=== PATIENT | male | born 1975 | race Hispanic/Latino ===

== ENCOUNTER 2018-07-01 02:15 | Emergency (ER) | payer SELFPAY ==
[2018-07-01 02:15] VITALS: BMI 31.5
[2018-07-01 02:23] VITALS: BP 118/75; PULSE 85; RESP 18; TEMP 97.8; O2SAT 99
--- NOTE | 2018-07-01 02:49 | ED PDOC ---
HPI: Psych/Substance Abuse Chief Complaint (Provider): crisis eval History Per: Patient History/Exam Limitations: no limitations Onset/Duration Of Symptoms: Days Current Symptoms Are (Timing): Still Present Additional Complaint(s): 42 y/o male presents for crisis evaluation. Patient states he has been off his psychiatric medications two weeks because he "lost them"; states he smoked K2 over the weekend and now has been having homicidal ideations. Denies suicidal ideations, recent drug/alcohol use, acute physical complaints. <Isela Vail - Last Filed: 07/01/18 03:44> <Roby Perez - Last Filed: 07/01/18 06:47> Time Seen by Provider: 07/01/18 02:30 Chief Complaint (Nursing): Psychiatric Evaluation Past Medical History Reviewed: Historical Data, Nursing Documentation, Vital Signs Vital Signs: Last Vital Signs Temp 97.8 F 07/01/18 02:19 Pulse 85 07/01/18 02:19 Resp 18 07/01/18 02:19 BP 118/75 07/01/18 02:19 Pulse Ox 99 07/01/18 02:19 - Medical History PMH: Anxiety, Asthma, Bipolar Disorder, Depression, Schizophrenia Denies: Diabetes, Hepatitis, HIV, HTN, Seizures, Sexually Transmitted Disease - Family History Family History: States: Unknown Family Hx - Living Arrangements Living Arrangements: Alone - Social History Current smoker - smoking cessation education provided: Yes Alcohol: None Drugs: Cannabis - Immunization History Hx Tetanus Toxoid Vaccination: No Hx Influenza Vaccination: No Hx Pneumococcal Vaccination: No <Isela Vail - Last Filed: 07/01/18 03:44> Vital Signs: Last Vital Signs Temp 97.8 F 07/01/18 02:19 Pulse 85 07/01/18 02:19 Resp 18 07/01/18 02:19 BP 118/75 07/01/18 02:19 Pulse Ox 99 07/01/18 03:46 <Roby Perez - Last Filed: 07/01/18 06:47> - Home Medications Home Medications: Ambulatory Orders Medication Instructions Recorded Benztropine Mesylate [Cogentin] 2 mg PO DAILY #20 tab 02/11/14 RX: Risperidone 1 mg PO DAILY #20 tab 02/11/14 RX: Divalproex [Depakote ER] 500 mg PO BID #14 ter 09/28/15 RX: risperiDONE [RisperDAL Tab] 2 mg PO BID #14 tab 09/28/15 Ibuprofen [Motrin] 400 mg PO Q6 #30 tab 04/27/16 - Allergies Allergies/Adverse Reactions: Allergies Allergy/AdvReac Type Severity Reaction Status Date / Time meperidine Allergy ANAPHYLAXIS Verified 04/27/16 20:51 morphine Allergy ANAPHYLAXIS Verified 04/27/16 20:51 Review of Systems ROS Statement: Except As Marked, All Systems Reviewed And Found Negative Psych: Positive for: Psychosis <Isela Vail - Last Filed: 07/01/18 03:44> Physical Exam - Reviewed Nursing Documentation Reviewed: Yes Vital Signs Reviewed: Yes - Physical Exam Appears: Positive for: Well, Non-toxic, No Acute Distress Head Exam: Positive for: ATRAUMATIC, NORMAL INSPECTION, NORMOCEPHALIC Skin: Positive for: Normal Color Eye Exam: Positive for: Normal appearance ENT: Positive for: Normal ENT Inspection Cardiovascular/Chest: Positive for: Regular Rate, Rhythm Respiratory: Positive for: Normal Breath Sounds Gastrointestinal/Abdominal: Positive for: Normal Exam Back: Positive for: Normal Inspection Extremity: Positive for: Normal ROM Neurologic/Psych: Positive for: Alert, Oriented (x3) <Isela Vail - Last Filed: 07/01/18 03:44> - ECG O2 Sat by Pulse Oximetry: 99 - Progress ED Course And Treament: Patient evaluated by traffic worker; does not meet criteria for admission at this time as per Dr. Santillan Patient stable for discharge Return precautions given <Isela Vail - Last Filed: 07/01/18 03:44> Disposition - Patient ED Disposition Is Patient to be Admitted: No Counseled Patient/Family Regarding: Diagnosis, Need For Followup - Disposition Disposition: Routine/Home Disposition Time: 03:45 <Isela Vail - Last Filed: 07/01/18 03:44> <Roby Perez - Last Filed: 07/01/18 06:47> - Clinical Impression Clinical Impression: Schizoaffective disorder - Disposition Condition: STABLE Instructions: Schizoaffective Disorder - PA / [employer] / Resident Statement MD/DO has reviewed & agrees with the documentation as recorded. <Roby Perez - Last Filed: 07/01/18 06:47>
== END 2018-07-01 04:40 | disposition home or self-care (01) ==
LOC: H.ER 02:15
DX: F25.9 Schizoaffective disorder, unspecified (principal)